=== PATIENT | male | born 1955 | race Caucasian/White ===

== ENCOUNTER 2024-08-21 12:46 | Observation (INO) ==
--- NOTE | 2024-08-21 12:52 | EKG ---
Test Reason : syncopy Blood Pressure : */* mmHG Vent. Rate : 66 BPM Atrial Rate : 66 BPM P-R Int : 154 ms QRS Dur : 74 ms QT Int : 394 ms P-R-T Axes : 56 45 48 degrees QTc Int : 413 ms Normal sinus rhythm Possible Anterior infarct , age undetermined Abnormal ECG No previous ECGs available Confirmed by Justin Brush MD ([id number]) on 08/22/2024 7:21:39 AM Referred By: Confirmed By: Justin Brush MD
--- NOTE | 2024-08-21 13:09 | DR.GENAD ---
HPI Time Seen Time Seen by Provider: 08/21/24 13:08 HPI Comment HPI Comment: 68-year-old male with history of diabetes, hypertension and stents was brought in by EMS after he almost passed out and vomited twice, bloodstained vomitus. He denied any chest or abdominal pain. Patient has a pacemaker de fibrillator due to syncopal episode more than 5 years ago, saw student worker and they implanted him with this device. This has not fired since then. He is scheduled to see his student worker next month and for the meantime and be advised to increase his aspirin to twice a day. He has recurrent episodes of almost passing out whenever he stands up and thinks his blood pressure bottoms down. Complaint/Symptoms Chief Complaint Doctors Comments: Almost passed out, vomited bloody vomit COVID-19 Coronavirus risk:travel/contact w/high risk person: No Has patient experienced Coronavirus symptoms: No PMH PMH Past Medical History: Diabetes and Hypertension Past Surgical History: Yes Surgical History: Angioplasty/Stents and Ortho Surgery Family History Family Medical History: Diabetes Mellitus Social History Do you use any recreational Drugs:: No ROS Review of Systems Constitutional: Diaphoresis and Weakness Eyes: Blurred Vision ENTM: No Symptoms Reported Respiratoy: No Symptoms Reported; negative Short of Breath or Wheezing Cardiovascular: negative Chest Pain, Edema, Palpitations, Syncope or Cyanosis Gastrointestinal/Abdominal: No Symptoms Reported Genitourinary: No Symptoms Reported Neurological: No Symptoms Reported Musculoskeletal: No Symptoms Reported Integumentary: No Symptoms Reported; negative Rash Hematologic/Lymphatic: No Symptoms Reported; negative Easy Bleeding Endocrine: No Symptoms Reported Psychiatric: No Symptoms Reported; negative Anxiety or Depression All Other Systems: Reviewed and Negative PE Vital Signs Vitals: Vital Signs Temperature 98.0 F Pulse Rate 68 Pulse Rate 68 Pulse Rate 68 Pulse Rate 71 Pulse Rate 73 Pulse Rate 64 Pulse Rate 63 Pulse Rate 65 Pulse Rate 66 Pulse Rate 63 Pulse Rate 64 Pulse Rate 64 Pulse Rate 69 Pulse Rate 68 Pulse Rate 74 Pulse Rate 69 Pulse Rate 66 Pulse Rate 64 Pulse Rate 65 Pulse Rate 66 Pulse Rate 62 Pulse Rate 63 Pulse Rate 66 Pulse Rate 64 Respiratory Rate 19 Respiratory Rate 13 Respiratory Rate 17 Respiratory Rate 22 Respiratory Rate 23 Respiratory Rate 15 Respiratory Rate 21 Respiratory Rate 16 Respiratory Rate 13 Respiratory Rate 23 Respiratory Rate 21 Respiratory Rate 18 Respiratory Rate 15 Respiratory Rate 16 Respiratory Rate 22 Respiratory Rate 12 Respiratory Rate 17 Respiratory Rate 17 Respiratory Rate 11 Respiratory Rate 15 Respiratory Rate 15 Respiratory Rate 18 Blood Pressure 108/55 Blood Pressure 108/58 Blood Pressure 106/57 Blood Pressure 106/57 Blood Pressure 101/55 Blood Pressure 106/52 Blood Pressure 93/54 Blood Pressure 105/55 Blood Pressure 111/48 Blood Pressure 104/55 Blood Pressure 108/57 Blood Pressure 84/51 Blood Pressure 99/51 Blood Pressure 99/52 O2 Sat by Pulse Oximetry 97 O2 Sat by Pulse Oximetry 98 O2 Sat by Pulse Oximetry 98 O2 Sat by Pulse Oximetry 97 O2 Sat by Pulse Oximetry 97 O2 Sat by Pulse Oximetry 98 O2 Sat by Pulse Oximetry 98 O2 Sat by Pulse Oximetry 98 O2 Sat by Pulse Oximetry 98 O2 Sat by Pulse Oximetry 99 O2 Sat by Pulse Oximetry 98 O2 Sat by Pulse Oximetry 99 O2 Sat by Pulse Oximetry 98 O2 Sat by Pulse Oximetry 99 O2 Sat by Pulse Oximetry 99 O2 Sat by Pulse Oximetry 98 O2 Sat by Pulse Oximetry 99 O2 Sat by Pulse Oximetry 97 O2 Sat by Pulse Oximetry 98 O2 Sat by Pulse Oximetry 96 O2 Sat by Pulse Oximetry 97 O2 Sat by Pulse Oximetry 98 O2 Sat by Pulse Oximetry 98 O2 Sat by Pulse Oximetry 98 General Limitations: No Limitations General Appearance: Alert, In No Apparent Distress and Anxious Head Head Exam: Normal Inspection, Atraumatic and Normocephalic Eyes Eye exam: Normal Appearance and PERRL; negative Scleral Icterus ENT ENT Exam: Normal Exam, Normal Oropharynx and Mucous Membranes Moist External Ear Exam: Normal External Inspection; negative Auricular Hematoma Neck Neck Exam: Normal Inspection, Full ROM and Trachea Midline Chest Chest Inspection: Normal Inspection and Symmetric Chest Wall Rise; negative Tenderness Respiratory Respiratory Exam: Normal Lung Sounds Bilat; negative Accessory Muscle Use Cardiovascular Cardiovascular Exam: Regular Rate and Normal Rhythm Abdominal Exam Abdominal Exam: Normal Inspection and Normal Bowel Sounds Extremities Extremities Exam: Normal Inspection, Full ROM and Normal Capillary Refill; negative Tenderness Back Back Exam: Normal Inspection and Full ROM Neurologic Neurological Exam: Alert, Oriented X3, CN II-XII Intact and Reflexes Normal; negative Motor Sensory Deficit Psychiatric Psychiatric Exam: Normal Affect and Normal Mood Skin Skin Exam: Warm, Dry and Normal Color MDM Additional Information Additional Information Obtained From: Old Records and Family Differential Diagnosis Differential Diagnosis: Sepsis, arrhythmia, ACS, GI bleed COURSE Treatment Treatment: Patient is given IV fluids for his initial hypotension, improved to 108/68. Lactic acid is negative. EKG showed normal sinus rhythm, with no acute ischemic changes, has a pacemaker defibrillator. Cardiac enzymes are negative chest x-ray was unremarkable. CT scan of the abdomen pelvis did not show any acute worrisome finding. Stools were heme positive. Reevaluation 1st: Improved Consultation Called: 17:27 Consultation Comments: Hospitalist have been notified [facility] Labs Reviewed Laboratory Results Reviewed?: Yes 08/21/24 13:06 08/21/24 13:06 Laboratory: WBC 7.6 X10^3/uL (3.6-10.0) 08/21/24 13:06 RBC 4.24 X10^6/uL (4.7-6.0) L 08/21/24 13:06 Hgb 12.1 g/dL (13.5-18.0) L 08/21/24 13:06 Hct 36.3 % (42.0-54.0) L 08/21/24 13:06 MCV 85.7 fL (80.0-100.0) 08/21/24 13:06 MCH 28.5 pg (27.0-34.0) 08/21/24 13:06 MCHC 33.3 g/dL (33.0-35.0) 08/21/24 13:06 RDW 13.9 % (11.6-16.5) 08/21/24 13:06 Plt Count 267 X10^3/uL (150.0-450.0) 08/21/24 13:06 MPV 8.1 fL (7.4-11.0) 08/21/24 13:06 Neut % (Auto) 67.2 % (42.0-75.0) 08/21/24 13:06 Lymph % (Auto) 23.4 % (21.0-51.0) 08/21/24 13:06 [place] % (Auto) 7.1 % (0.0-13.0) 08/21/24 13:06 Eos % (Auto) 1.4 % (0.9-2.9) 08/21/24 13:06 Baso % (Auto) 0.9 % (0.2-1.0) 08/21/24 13:06 Neut # (Auto) 5.1 x10^3/uL (2.2-4.8) H 08/21/24 13:06 Lymph # (Auto) 1.8 X10^3/uL (1.3-2.9) 08/21/24 13:06 [place] # (Auto) 0.5 x10^3/uL (0.3-0.8) 08/21/24 13:06 Eos # (Auto) 0.1 x10^3/uL (0.0-0.2) 08/21/24 13:06 Baso # (Auto) 0.1 X10^3/uL (0.0-0.1) 08/21/24 13:06 Absolute Nucleated RBC 0.1 /100WBC 08/21/24 13:06 PT 14.8 SECONDS (11.8-14.3) 08/21/24 13:06 INR Target Range - 08/21/24 13:06 INR 1.19 (0.8-1.3) 08/21/24 13:06 APTT 29.8 SECONDS (22.9-36.5) 08/21/24 13:06 PTT Comment - 08/21/24 13:06 Sodium 140 mmol/L (136-145) 08/21/24 13:06 Corrected Sodium 143 mmol/L (136-145) 08/21/24 13:06 Potassium 5.3 mmol/L (3.5-5.1) H 08/21/24 13:06 Chloride 105 mmol/L (98-107) 08/21/24 13:06 Carbon Dioxide 29.3 mmol/L (21-32) 08/21/24 13:06 BUN 52 mg/dL (7-18) H 08/21/24 13:06 Creatinine 0.97 mg/dL (0.70-1.30) 08/21/24 13:06 Est GFR (MDRD) Af Amer > 60 (>60) 08/21/24 13:06 Est GFR (MDRD) Non-Af > 60 (>60) 08/21/24 13:06 Glucose 224 mg/dL (65-99) H 08/21/24 13:06 Lactic Acid 1.1 mmol/L (0.4-2.0) 08/21/24 15:25 Calcium 8.5 mg/dL (8.5-10.1) 08/21/24 13:06 Corrected Calcium 9.3 mg/dL (8.5-10.1) 08/21/24 13:06 Total Bilirubin 0.50 mg/dL (0.2-1.0) 08/21/24 13:06 AST 14 Units/L (15-37) L 08/21/24 13:06 ALT 20 Units/L (12-78) 08/21/24 13:06 Alkaline Phosphatase 63 Units/L (46-116) 08/21/24 13:06 Creatine Kinase 69 Units/L (39-308) 08/21/24 13:06 Troponin I High Sens 6.5 ng/L (4.0-60.0) 08/21/24 13:06 Total Protein 5.8 g/dL (6.4-8.2) L 08/21/24 13:06 Albumin 3.0 g/dL (3.4-5.0) L 08/21/24 13:06 Globulin 2.8 g/dL (2.5-4.5) 08/21/24 13:06 Albumin/Globulin Ratio 1.1 Ratio (1.1-2.1) 08/21/24 13:06 Lipase 28 Units/L (16-77) 08/21/24 13:06 Specimen Type Clean catch urine 08/21/24 14:40 Urine Color Yellow (YELLOW) 08/21/24 14:40 Urine Appearance Clear (CLEAR) 08/21/24 14:40 Urine pH 6.0 (5.0 - 8.0) 08/21/24 14:40 Ur Specific [place] 1.020 (1.000-1.030) 08/21/24 14:40 Urine Protein 2+ (NEGATIVE) 08/21/24 14:40 Urine Glucose (UA) Negative (NEGATIVE) 08/21/24 14:40 Urine Ketones 1+ (NEGATIVE) 08/21/24 14:40 Urine Blood Negative (NEGATIVE) 08/21/24 14:40 Urine Nitrite Negative (NEGATIVE) 08/21/24 14:40 Urine Bilirubin Negative (NEGATIVE) 08/21/24 14:40 Urine Urobilinogen Normal (NORMAL) 08/21/24 14:40 Ur Leukocyte Esterase Negative (NEGATIVE) 08/21/24 14:40 Urine RBC 0-2 /HPF (0-3) 08/21/24 14:40 Urine WBC 0-2 /HPF (0-5) 08/21/24 14:40 Ur Squamous Epith Cells Rare /HPF (NEGATIVE) 08/21/24 14:40 Urine Bacteria Negative /HPF (NEGATIVE) 08/21/24 14:40 Hyaline Casts Few /LPF (NEGATIVE) 08/21/24 14:40 Ur Culture Indicated? No/not indicated 08/21/24 14:40 Stool Occult Blood Positive (NEGATIVE) A 08/21/24 14:40 Urine Opiates Screen Negative (NEG=<300) 08/21/24 14:40 Urine Methadone Screen Negative (NEG=<300) 08/21/24 14:40 Ur Barbiturates Screen Negative (NEG=<200) 08/21/24 14:40 Ur Phencyclidine Scrn Negative (NEG=<25) 08/21/24 14:40 Ur Amphetamines Screen Negative (NEG=<1000) 08/21/24 14:40 U Benzodiazepines Scrn Negative (NEG=<200) 08/21/24 14:40 Urine Cocaine Screen Negative (NEG=<300) 08/21/24 14:40 U Marijuana (THC) Screen Negative (NEG=<50) 08/21/24 14:40 Ethyl Alcohol mg/dL < 3 mg/dL (0-19.9) 08/21/24 13:06 Opioid Opioid Risk Tool Age (Ron box if 16-45): No History of Preadolescent Sexual Abuse: No Total: 0 Total Score Risk Category: Low Risk Copyright: Gerard ALLEN predicting aberrant behaviors Discharge Plan Diagnosis Discharge Problem: Postural dizziness with near syncope, Heme positive stool, Acute hypotension Hospital Course Hospital Course: Patient is given IV fluids for his hypotension. No further recurrence of hematemesis was noted. Stools are heme positive. Flat test results are all within normal limits. EKG was also unremarkable, cardiac enzymes and troponin negative. Due to hypotension and probable GI bleed, patient will be admitted for the hospitalist, discussed with Dr. Huitron Discharge Plan Patient Disposition: ADMITTED INPATIENT Condition: Stable Prescriptions: No Action zinc 15 mg Tablet 30 mg PO DAILY atorvastatin 40 mg tablet 40 mg PO QDAY metformin 500 mg tablet 500 mg PO BID ascorbic acid (vitamin C) [Vitamin C] 1,000 mg Tablet 1,000 mg PO DAILY cetirizine 10 mg Tablet 10 mg PO DAILY nifedipine 90 mg tablet extended release 90 mg PO QDAY metoprolol succinate 200 mg tablet extended release 24 hr 200 mg PO QDAY isosorbide mononitrate 30 mg tablet extended release 24 hr 120 mg PO QDAY clopidogrel 75 mg tablet 75 mg PO QDAY meloxicam 7.5 mg tablet 7.5 mg PO BID tamsulosin 0.4 mg capsule 0.4 mg PO QDAY gemfibrozil 600 mg tablet 600 mg PO BID hydroxyzine HCl 25 mg tablet 25 mg PO QDAY lisinopril 40 mg tablet 40 mg PO QDAY finasteride 5 mg tablet 5 mg PO QDAY Centrum Silver Tablet 1 tab PO DAILY cholecalciferol (vitamin D3) [Vitamin D3] 125 mcg (5,000 unit) Tablet 125 mcg PO DAILY aspirin [Aspir-81] 81 mg Tablet,Delayed Release (Dr/Ec) 81 mg PO QDAY dapagliflozin propanediol [Farxiga] 10 mg Tablet 10 mg PO QDAY hydralazine 25 mg Tablet 25 mg PO BID Health Concerns: Post Hospitalization: new medications and changes needed to prevent readmission or further decline. Pt educated and given instructions on all concerns. Plan of Treatment: Continue with present treatment and follow up plan. Pt is to keep follow up appointment as instructed and take medications as ordered. Follow ups/Referrals Follow ups/Referrals: JAELYN SAHU [Primary Care Provider] - 3 days Instructions Stand Alone Forms: Find Help Web Site, Post Hospital Follow Up Care
[2024-08-21] MEDS: NS 1,000 ML IV 1,000 ML IV ONE ×2 (13:21→15:55)
[2024-08-21 13:24] LABS: BASOPHILS # (AUTO) 0.1 X10^3/uL (0.0-0.1); BASOPHILS % (AUTO) 0.9 % (0.2-1.0); EOSINOPHILS # (AUTO) 0.1 x10^3/uL (0.0-0.2); EOSINOPHILS % (AUTO) 1.4 % (0.9-2.9); HEMATOCRIT 36.3 % (42.0-54.0); HEMOGLOBIN 12.1 g/dL (13.5-18.0); LYMPHOCYTES # (AUTO) 1.8 X10^3/uL (1.3-2.9); LYMPHOCYTES % (AUTO) 23.4 % (21.0-51.0); MEAN CORPUSCULAR HEMOGLOBIN 28.5 pg (27.0-34.0); MEAN CORPUSCULAR HGB CONC 33.3 g/dL (33.0-35.0); MEAN CORPUSCULAR VOLUME 85.7 fL (80.0-100.0); MEAN PLATELET VOLUME 8.1 fL (7.4-11.0); MONOCYTES # (AUTO) 0.5 x10^3/uL (0.3-0.8); MONOCYTES % (AUTO) 7.1 % (0.0-13.0); NEUTROPHILS # (AUTO) 5.1 x10^3/uL (2.2-4.8); NEUTROPHILS % (AUTO) 67.2 % (42.0-75.0); PLATELET COUNT 267 X10^3/uL (150.0-450.0); RED BLOOD COUNT 4.24 X10^6/uL (4.7-6.0); RED CELL DISTRIBUTION WIDTH 13.9 % (11.6-16.5); WHITE BLOOD COUNT 7.6 X10^3/uL (3.6-10.0)
[2024-08-21 13:29] LABS: INR 1.19 (0.8-1.3)
[2024-08-21 13:39] LABS: ALANINE AMINOTRANSFERASE 20 Units/L (12-78); ALKALINE PHOSPHATASE 63 Units/L (46-116); ASPARTATE AMINO TRANSFERASE 14 Units/L (15-37); BLOOD ALCOHOL < 3 mg/dL (0-19.9); BLOOD UREA NITROGEN 52 mg/dL (7-18); CALCIUM 8.5 mg/dL (8.5-10.1); CARBON DIOXIDE 29.3 mmol/L (21-32); CHLORIDE 105 mmol/L (98-107); COR CA(FOR HYPOALB) 9.3 mg/dL (8.5-10.1); COR NA(FOR HYPERGLY) 143 mmol/L (136-145); CREATINE KINASE 69 Units/L (39-308); CREATININE 0.97 mg/dL (0.70-1.30); GLUCOSE 224 mg/dL (65-99); LIPASE 28 Units/L (16-77); POTASSIUM 5.3 mmol/L (3.5-5.1); SODIUM 140 mmol/L (136-145); TOTAL PROTEIN 5.8 g/dL (6.4-8.2); eGFR NON BLACK RACES > 60 (>60)
--- NOTE | 2024-08-21 13:59 | CT ---
EXAM:ABDOMEN/PELVIS W/O CONHISTORY:dysuria, recurrent uti ;COMPARISON:Abdominopelvic CT examination dated February 20, 2019TECHNIQUE:Multiple axial images of the abdomen and pelvis were obtained from the lung bases to the pubic symphysis without the administration of IV contrast. Dose reduction techniques including Automated Exposure Control (AEC) and adjustment of mA and kV were utilized. Of note, this noncontrast CT examination of the abdomen and pelvis was optimized for renal stone disease and, thus, many abdominopelvic/intraperitoneal organ abnormalities and especially vascular abnormalities and pathologies can not be completely excluded on the basis of this noncontrast CT examination. If there remains strong clinical concern for solid organ parenchymal abnormality/injuries or vascular abnormalities especially injuries, then repeat imaging with postcontrast abdominopelvic CT will be required.FINDINGS:The lung bases are clear. The heart is normal in size without a pericardial effusion. Scattered coronary atherosclerosis is seen with a cardiac pacing device in the right ventricle. Noncontrast CT images of the liver, pancreas, spleen, and adrenal glands are unremarkable in appearance. The stomach is filled with food stuff.No obstructing renal stones, hydronephrosis, or hydroureter is seen.The gallbladder demonstrates a small intraluminal gallbladder stone with probable gallbladder sludge. This can be followed up with gallbladder sonography for assurance.There is no evidence for acute appendicitis, colitis, or diverticulitis. There is a small fat containing periumbilical hernia with postsurgical changes following a prior hernia repair.No bowel obstruction or bowel strangulation is seen.Degenerative changes are seen throughout the lower lumbar spine with bilateral pars defects at L3-4 which creates slight anterolisthesis of L3 on L4 with a broad-based posterior disc osteophyte complex at this level which combines with facet joint DJD to create [id number] central spinal canal and foraminal narrowing at this level. Broad-based posterior disc osteophyte complex is also seen at L5-S1 which creates moderate central spinal canal narrowing and [id number] bilateral foraminal narrowing at this level as well. Please correlate for low back pain and/or radiculopathy. Degenerative spondylosis and changes of DISH are also seen involving the thoracolumbar spinal junction.No other acute or significant abdominal process is identified, given the inherent physical limitations of this noncontrast CT study.The bones demonstrate no evidence for an acute fracture or destructive lytic bone lesion on this examination.IMPRESSION:As above.THIS IS AN ELECTRONICALLY VERIFIED FINAL REPORT08/21/2024 1:55 PM - Electronically signed by Eugenio Stewart MD
--- NOTE | 2024-08-21 14:42 | RAD ---
EXAM: CHEST, 1 VIEW HISTORY: vomited blood; COMPARISON: No relevant prior studies were available for comparison at the time of interpretation. TECHNIQUE: CHEST, 1 VIEW FINDINGS: Chest: Lines and tubes: Left-sided pacemaker generator with lead or leads in satisfactory position. Mediastinum: Cardiac and mediastinal shadow is within normal limits for size and contour. Pulmonary vessels: No pulmonary vascular congestion. Lung davalos: No suspicious airspace opacity. Pleura: No effusion. No pneumothorax. Bones and soft tissues: No acute osseous or soft tissue abnormality. IMPRESSION: 1. No acute cardiopulmonary abnormality THIS IS AN ELECTRONICALLY VERIFIED FINAL REPORT 08/21/2024 2:38 PM - Electronically signed by Cabrera Morfin MD
[2024-08-21 15:06] LABS: BILIRUBIN,URINE NEGATIVE (NEGATIVE); BLOOD/HEMOGLOBIN,URINE NEGATIVE (NEGATIVE); GLUCOSE, URINE NEGATIVE (NEGATIVE); KETONES,URINE 1+ (NEGATIVE); LEUKOCYTE ESTERASE ,URINE NEGATIVE (NEGATIVE); NITRITES,URINE NEGATIVE (NEGATIVE); PROTEIN,URINE 2+ (NEGATIVE); UROBILINOGEN,URINE NORMAL (NORMAL)
[2024-08-21 15:07] LABS: APPEARANCE,URINE CLEAR (CLEAR); COLOR,URINE YELLOW (YELLOW)
[2024-08-21 15:18] LABS: BACTERIA,URINE NEGATIVE /HPF (NEGATIVE); HYALINE CASTS, URINE FEW /LPF (NEGATIVE); RBC,URINE 0-2 /HPF (0-3); SQUAMOUS EPITHELIAL CELL,UR RARE /HPF (NEGATIVE)
[2024-08-21] MEDS ORDERED: NovoLIN R (or HumuLIN R) SUBCUT PRN (19:23)
[2024-08-21] MEDS: SNACK - Diabetic Appropriate PO SCH (21:33)
[2024-08-21] MEDS: PROTONIX INJ 40 MG VIAL IVP SCH (22:20)
[2024-08-21] MEDS: FLOMAX PO SCH (22:20)
[2024-08-21] MEDS: NS 1,000 ML IV 1,000 ML IV SCH (23:06)
[2024-08-22 01:15] VITALS: BMI 31.9
[2024-08-22 06:10] LABS: BASOPHILS % (AUTO) 0.3 % (0.2-1.0); EOSINOPHILS # (AUTO) 0.1 x10^3/uL (0.0-0.2); EOSINOPHILS % (AUTO) 0.8 % (0.9-2.9); HEMATOCRIT 29.5 % (42.0-54.0); HEMOGLOBIN 10.1 g/dL (13.5-18.0); LYMPHOCYTES # (AUTO) 1.9 X10^3/uL (1.3-2.9); LYMPHOCYTES % (AUTO) 24.2 % (21.0-51.0); MEAN CORPUSCULAR HEMOGLOBIN 28.7 pg (27.0-34.0); MEAN CORPUSCULAR HGB CONC 34.1 g/dL (33.0-35.0); MEAN CORPUSCULAR VOLUME 83.9 fL (80.0-100.0); MEAN PLATELET VOLUME 8.1 fL (7.4-11.0); MONOCYTES # (AUTO) 0.8 x10^3/uL (0.3-0.8); MONOCYTES % (AUTO) 9.7 % (0.0-13.0); NEUTROPHILS # (AUTO) 5.2 x10^3/uL (2.2-4.8); PLATELET COUNT 230 X10^3/uL (150.0-450.0); RED BLOOD COUNT 3.52 X10^6/uL (4.7-6.0); RED CELL DISTRIBUTION WIDTH 13.8 % (11.6-16.5)
[2024-08-22] MEDS: GLUCOPHAGE PO SCH (06:14)
[2024-08-22 06:27] LABS: ALANINE AMINOTRANSFERASE 17 Units/L (12-78); ALKALINE PHOSPHATASE 48 Units/L (46-116); ASPARTATE AMINO TRANSFERASE 10 Units/L (15-37); BLOOD UREA NITROGEN 51 mg/dL (7-18); CALCIUM 8.3 mg/dL (8.5-10.1); CARBON DIOXIDE 23.5 mmol/L (21-32); CHLORIDE 109 mmol/L (98-107); COR CA(FOR HYPOALB) 9.1 mg/dL (8.5-10.1); COR NA(FOR HYPERGLY) 144 mmol/L (136-145); CREATININE 0.89 mg/dL (0.70-1.30); GLUCOSE 136 mg/dL (65-99); POTASSIUM 3.7 mmol/L (3.5-5.1); SODIUM 143 mmol/L (136-145); TOTAL PROTEIN 5.5 g/dL (6.4-8.2); eGFR NON BLACK RACES > 60 (>60)
[2024-08-22] MEDS ORDERED: CONSULT PHARMACY - POTASSIUM & MAGNESIUM XX SCH (08:00)
[2024-08-22] MEDS ORDERED: TOPROL XL PO ONE (09:36)
[2024-08-22] MEDS: TAB-A-VITE PO SCH (09:46)
[2024-08-22] MEDS: TOPROL XL PO SCH (09:47)
[2024-08-22] MEDS: ZESTRIL TAB 40 MG PO SCH (09:47)
[2024-08-22] MEDS: FARXIGA PO SCH (09:47)
[2024-08-22] MEDS: LIPITOR TAB 40 MG PO SCH (09:47)
[2024-08-22] MEDS: K-DUR TAB 20 MEQ PO SCH (09:47)
[2024-08-22] MEDS: ATARAX TAB 25 MG PO SCH (09:47)
[2024-08-22] MEDS: DIPRIVAN VIAL 20 ML ONE (12:10)
[2024-08-22] MEDS: NS 1,000 ML IV 300 ML IV PRN (12:14)
[2024-08-22] MEDS: XYLOCAINE 2 % (PLAIN) INJ PRN (12:16)
[2024-08-22] MEDS: DIPRIVAN VIAL 150 ML IVP PRN (12:17)
--- NOTE | 2024-08-22 14:10 | RAD ---
EXAM:CHEST, 1 VIEWHISTORY:CHF, SOB, GI BLEED;COMPARISON:No relevant prior studies were available for comparison at the time of interpretation.TECHNIQUE:CHEST, 1 VIEWFINDINGS:Chest:Lines and tubes: Left-sided pacemaker generator with lead or leads in satisfactory position.Mediastinum: Cardiac and mediastinal shadow is within normal limits for size and contour.Pulmonary vessels: No pulmonary vascular congestion.Lung davalos: No suspicious airspace opacity.Pleura: No effusion. No pneumothorax.Bones and soft tissues: No acute osseous or soft tissue abnormality.IMPRESSION:1. No acute cardiopulmonary abnormalityTHIS IS AN ELECTRONICALLY VERIFIED FINAL REPORT08/22/2024 2:06 PM - Electronically signed by Cabrera Morfin MD
[2024-08-22] MEDS: CARAFATE PO SCH (15:32)
--- NOTE | 2024-08-22 16:20 | DR.H&P ---
H&P History & Physical for Day of: H&P Date: 08/21/24 Chief Complaint Chief Complaint: PASSED OUT, LOW BLOOD PRESSURE, VOMITING DARK BROWN History of Present Illness History of Present Illness: PT IS 68 WM, ER ADMISSION WITH CO UPPER ABDOMINAL PAIN WITH VOMITING COFFEE GROUND EMESIS. PT CO SPELL OF WEAKNESS AND DIZZINESS AND SYNCOPE. PT WAS BROUGHT TO ER FOR ASSESSMENT. PT WAS HYPOTENSIVE ON ARRIVAL. PT WAS GIVEN IVF BOLUS IN ER. PT HAS POSITIVE OCCULT STOOL. PT HAS PMH OF CAD WITH PACEMAKER/DEFIBRILLATOR, BPH, HTN, CAROTID ARTERY DISEASE, CHF, OA AND [place]. PT ADMITTED FOR TREATMENT AND EVALUATION OF ACUTE ILLNESS. Past Medical History Past Medical History: Arthritis, Diabetes, Dyslipidemia, GERD and Hypertension Past Surgical History Surgical History: Angioplasty/Stents Family History Family Medical History: Diabetes Mellitus, Cancer, [place], Coronary Artery Disease, Heart Failure, Sudden Cardiac and Hypertension Social History Does patient currently use any type of tobacco product: No Have you used tobacco products in the last 12 months: No Type of Tobacco Use: None Does any household member use tobacco: No Alcohol Use: None Drug Use: None Medications Home Medications: Home Medications Medication Instructions Recorded Confirmed Type ascorbic acid (vitamin C) 1,000 mg 1,000 mg PO DAILY 08/19/22 08/21/24 History tablet (Vitamin C) atorvastatin 40 mg tablet 40 mg PO QDAY 08/19/22 08/21/24 History cetirizine 10 mg tablet 10 mg PO DAILY 08/19/22 08/21/24 History cholecalciferol (vitamin D3) 125 125 mcg PO DAILY 08/19/22 08/21/24 History mcg (5,000 unit) tablet (Vitamin D3) clopidogrel 75 mg tablet 75 mg PO QDAY 08/19/22 08/21/24 History finasteride 5 mg tablet 5 mg PO QDAY 08/19/22 08/21/24 History gemfibrozil 600 mg tablet 600 mg PO BID 08/19/22 08/21/24 History hydroxyzine HCl 25 mg tablet 25 mg PO QDAY 08/19/22 08/21/24 History isosorbide mononitrate 30 mg 120 mg PO QDAY 08/19/22 08/21/24 History tablet,extended release 24 hr lisinopril 40 mg tablet 40 mg PO QDAY 08/19/22 08/21/24 History meloxicam 7.5 mg tablet 7.5 mg PO BID 08/19/22 08/21/24 History metformin 500 mg tablet 500 mg PO BID 08/19/22 08/21/24 History metoprolol succinate 200 mg 200 mg PO QDAY 08/19/22 08/21/24 History tablet,extended release 24 hr lporlpnemwxy-jghoflsg-rnuyot tablet 1 tab PO DAILY 08/19/22 08/21/24 History nifedipine 90 mg tablet,extended 90 mg PO QDAY 08/19/22 08/21/24 History release tamsulosin 0.4 mg capsule 0.4 mg PO QDAY 08/19/22 08/21/24 History zinc 15 mg tablet 30 mg PO DAILY 08/19/22 08/21/24 History aspirin 81 mg tablet,delayed 81 mg PO QDAY 08/21/24 08/21/24 History release dapagliflozin propanediol 10 mg 10 mg PO QDAY 08/21/24 08/21/24 History tablet (Farxiga) hydralazine 25 mg tablet 25 mg PO BID 08/21/24 08/21/24 History Allergies Allergies Allergy/AdvReac Type Severity Reaction Status Date / Time Sulfa (Sulfonamide Allergy Verified 02/20/19 18:24 Antibiotics) [SULFA] Labs 08/22/24 05:06 08/22/24 05:06 Labs: Laboratory WBC 8.0 X10^3/uL (3.6-10.0) 08/22/24 05:06 RBC 3.52 X10^6/uL (4.7-6.0) L 08/22/24 05:06 Hgb 10.1 g/dL (13.5-18.0) L D 08/22/24 05:06 Hct 29.5 % (42.0-54.0) L 08/22/24 05:06 MCV 83.9 fL (80.0-100.0) 08/22/24 05:06 MCH 28.7 pg (27.0-34.0) 08/22/24 05:06 MCHC 34.1 g/dL (33.0-35.0) 08/22/24 05:06 RDW 13.8 % (11.6-16.5) 08/22/24 05:06 Plt Count 230 X10^3/uL (150.0-450.0) 08/22/24 05:06 MPV 8.1 fL (7.4-11.0) 08/22/24 05:06 Neut % (Auto) 65.0 % (42.0-75.0) 08/22/24 05:06 Lymph % (Auto) 24.2 % (21.0-51.0) 08/22/24 05:06 [place] % (Auto) 9.7 % (0.0-13.0) 08/22/24 05:06 Eos % (Auto) 0.8 % (0.9-2.9) L 08/22/24 05:06 Baso % (Auto) 0.3 % (0.2-1.0) 08/22/24 05:06 Neut # (Auto) 5.2 x10^3/uL (2.2-4.8) H 08/22/24 05:06 Lymph # (Auto) 1.9 X10^3/uL (1.3-2.9) 08/22/24 05:06 Island # (Auto) 0.8 x10^3/uL (0.3-0.8) 08/22/24 05:06 Eos # (Auto) 0.1 x10^3/uL (0.0-0.2) 08/22/24 05:06 Baso # (Auto) 0.0 X10^3/uL (0.0-0.1) 08/22/24 05:06 Absolute Nucleated RBC 0.0 /100WBC 08/22/24 05:06 PT 14.8 SECONDS (11.8-14.3) 08/21/24 13:06 INR Target Range - 08/21/24 13:06 INR 1.19 (0.8-1.3) 08/21/24 13:06 APTT 29.8 SECONDS (22.9-36.5) 08/21/24 13:06 PTT Comment - 08/21/24 13:06 Sodium 143 mmol/L (136-145) 08/22/24 05:06 Corrected Sodium 144 mmol/L (136-145) 08/22/24 05:06 Potassium 3.7 mmol/L (3.5-5.1) 08/22/24 05:06 Chloride 109 mmol/L (98-107) H 08/22/24 05:06 Carbon Dioxide 23.5 mmol/L (21-32) 08/22/24 05:06 BUN 51 mg/dL (7-18) H 08/22/24 05:06 Creatinine 0.89 mg/dL (0.70-1.30) 08/22/24 05:06 Est GFR (MDRD) Af Amer > 60 (>60) 08/22/24 05:06 Est GFR (MDRD) Non-Af > 60 (>60) 08/22/24 05:06 Glucose 136 mg/dL (65-99) H 08/22/24 05:06 POC Glucose (mg/dL) 121 mg/dL (65-99) H 08/22/24 12:21 Lactic Acid 1.1 mmol/L (0.4-2.0) 08/21/24 15:25 Calcium 8.3 mg/dL (8.5-10.1) L 08/22/24 05:06 Corrected Calcium 9.1 mg/dL (8.5-10.1) 08/22/24 05:06 Magnesium 1.9 mg/dL (2.0-2.9) L 08/22/24 05:06 Total Bilirubin 0.30 mg/dL (0.2-1.0) 08/22/24 05:06 AST 10 Units/L (15-37) L 08/22/24 05:06 ALT 17 Units/L (12-78) 08/22/24 05:06 Alkaline Phosphatase 48 Units/L (46-116) 08/22/24 05:06 Creatine Kinase 69 Units/L (39-308) 08/21/24 13:06 Troponin I High Sens 6.5 ng/L (4.0-60.0) 08/21/24 13:06 Total Protein 5.5 g/dL (6.4-8.2) L 08/22/24 05:06 Albumin 3.0 g/dL (3.4-5.0) L 08/22/24 05:06 Globulin 2.5 g/dL (2.5-4.5) 08/22/24 05:06 Albumin/Globulin Ratio 1.2 Ratio (1.1-2.1) 08/22/24 05:06 Lipase 28 Units/L (16-77) 08/21/24 13:06 Specimen Type Clean catch urine 08/21/24 14:40 Urine Color Yellow (YELLOW) 08/21/24 14:40 Urine Appearance Clear (CLEAR) 08/21/24 14:40 Urine pH 6.0 (5.0 - 8.0) 08/21/24 14:40 Ur Specific [place] 1.020 (1.000-1.030) 08/21/24 14:40 Urine Protein 2+ (NEGATIVE) 08/21/24 14:40 Urine Glucose (UA) Negative (NEGATIVE) 08/21/24 14:40 Urine Ketones 1+ (NEGATIVE) 08/21/24 14:40 Urine Blood Negative (NEGATIVE) 08/21/24 14:40 Urine Nitrite Negative (NEGATIVE) 08/21/24 14:40 Urine Bilirubin Negative (NEGATIVE) 08/21/24 14:40 Urine Urobilinogen Normal (NORMAL) 08/21/24 14:40 Ur Leukocyte Esterase Negative (NEGATIVE) 08/21/24 14:40 Urine RBC 0-2 /HPF (0-3) 08/21/24 14:40 Urine WBC 0-2 /HPF (0-5) 08/21/24 14:40 Ur Squamous Epith Cells Rare /HPF (NEGATIVE) 08/21/24 14:40 Urine Bacteria Negative /HPF (NEGATIVE) 08/21/24 14:40 Hyaline Casts Few /LPF (NEGATIVE) 08/21/24 14:40 Ur Culture Indicated? No/not indicated 08/21/24 14:40 Stool Occult Blood Positive (NEGATIVE) A 08/21/24 14:40 Urine Opiates Screen Negative (NEG=<300) 08/21/24 14:40 Urine Methadone Screen Negative (NEG=<300) 08/21/24 14:40 Ur Barbiturates Screen Negative (NEG=<200) 08/21/24 14:40 Ur Phencyclidine Scrn Negative (NEG=<25) 08/21/24 14:40 Ur Amphetamines Screen Negative (NEG=<1000) 08/21/24 14:40 U Benzodiazepines Scrn Negative (NEG=<200) 08/21/24 14:40 Urine Cocaine Screen Negative (NEG=<300) 08/21/24 14:40 U Marijuana (THC) Screen Negative (NEG=<50) 08/21/24 14:40 Ethyl Alcohol mg/dL < 3 mg/dL (0-19.9) 08/21/24 13:06 Review of Systems Constitutional: Weakness Eyes: No Symptoms Reported ENT: No Symptoms Reported Respiratory: SOB with Excertion Cardiovascular: Light Headedness Gastrointestinal: Vomiting and Abdominal Pain Genitourinary: Frequency Musculoskeletal: Back Pain Skin: No Symptoms Reported Neurological: Weakness and Other (SYNCOPE) Physical Exam Vital Signs: Vital Signs Temperature 98.1 F Temperature 98.1 F Temperature 98.0 F Temperature 98.1 F Temperature 98.4 F Temperature 98.1 F Pulse Rate [Left Radial] 71 Pulse Rate [Left Radial] 70 Pulse Rate [Left Radial] 68 Pulse Rate [Left Radial] 70 Pulse Rate [Left Radial] 70 Pulse Rate [Left Radial] 69 Respiratory Rate 18 Respiratory Rate 18 Respiratory Rate 18 Respiratory Rate 18 Respiratory Rate 18 Respiratory Rate 18 Blood Pressure [Left Arm] 146/78 Blood Pressure [Left Arm] 142/69 Blood Pressure [Left Arm] 134/69 Blood Pressure [Left Arm] 129/68 Blood Pressure [Left Arm] 140/65 Blood Pressure [Left Arm] 155/75 O2 Sat by Pulse Oximetry 97 O2 Sat by Pulse Oximetry 97 O2 Sat by Pulse Oximetry 97 O2 Sat by Pulse Oximetry 97 O2 Sat by Pulse Oximetry 97 O2 Sat by Pulse Oximetry 99 Oriented: Normal Eyes: Normal Ear: Normal Nose: Normal Throat: Normal Respiratory: RLL Diminished and LLL Diminished Cardiovascular: Normal and Other (PACER/DEFIB) Auscultation: Bowel Sounds: Normal Palpation: Normal Tenderness: Normal Skin: Normal and Decreased Turgur Musculoskeletal: negative Pulse Deficit Psychiatric: Normal Mood Description: Calm Affect: Normal Speech Pattern: Clear and Appropriate Assessment/Plan (1) GI bleed: Status: Acute Plan: ADMIT, NPO GI CONSULT, IV PROTONIX TELEMETRY IV HYDRATION, BP CONTROL VERIFY HOME MEDICATIONS OCCULT STOOL ON ADMISSION I&OS (2) Acute hypotension: Status: Acute (3) Postural dizziness with near syncope: Status: Acute (4) Acute urinary retention: Status: Acute (5) HTN (hypertension): Qualifiers: Hypertension type: essential hypertension Qualified Code(s): I10 - Essential (primary) hypertension Status: Acute (6) CAD (coronary artery disease): Status: Acute (7) Diabetes: Status: Acute
[2024-08-22 16:39] LABS: BASOPHILS % (AUTO) 0.5 % (0.2-1.0); EOSINOPHILS # (AUTO) 0.1 x10^3/uL (0.0-0.2); EOSINOPHILS % (AUTO) 1.8 % (0.9-2.9); HEMATOCRIT 30.3 % (42.0-54.0); HEMOGLOBIN 10.3 g/dL (13.5-18.0); LYMPHOCYTES # (AUTO) 2.1 X10^3/uL (1.3-2.9); LYMPHOCYTES % (AUTO) 31.4 % (21.0-51.0); MEAN CORPUSCULAR HEMOGLOBIN 28.7 pg (27.0-34.0); MEAN CORPUSCULAR VOLUME 84.5 fL (80.0-100.0); MEAN PLATELET VOLUME 8.1 fL (7.4-11.0); MONOCYTES # (AUTO) 0.6 x10^3/uL (0.3-0.8); MONOCYTES % (AUTO) 9.6 % (0.0-13.0); NEUTROPHILS # (AUTO) 3.8 x10^3/uL (2.2-4.8); NEUTROPHILS % (AUTO) 56.7 % (42.0-75.0); PLATELET COUNT 227 X10^3/uL (150.0-450.0); RED BLOOD COUNT 3.58 X10^6/uL (4.7-6.0); RED CELL DISTRIBUTION WIDTH 14.1 % (11.6-16.5); WHITE BLOOD COUNT 6.7 X10^3/uL (3.6-10.0)
[2024-08-22] MEDS: PROTONIX INJ 40 MG VIAL IVP SCH (21:11)
[2024-08-23 05:54] LABS: BASOPHILS # (AUTO) 0.1 X10^3/uL (0.0-0.1); BASOPHILS % (AUTO) 0.9 % (0.2-1.0); EOSINOPHILS # (AUTO) 0.2 x10^3/uL (0.0-0.2); EOSINOPHILS % (AUTO) 3.7 % (0.9-2.9); HEMATOCRIT 29.4 % (42.0-54.0); HEMOGLOBIN 9.9 g/dL (13.5-18.0); LYMPHOCYTES % (AUTO) 32.9 % (21.0-51.0); MEAN CORPUSCULAR HEMOGLOBIN 28.7 pg (27.0-34.0); MEAN CORPUSCULAR HGB CONC 33.8 g/dL (33.0-35.0); MEAN PLATELET VOLUME 7.8 fL (7.4-11.0); MONOCYTES # (AUTO) 0.6 x10^3/uL (0.3-0.8); MONOCYTES % (AUTO) 9.1 % (0.0-13.0); NEUTROPHILS # (AUTO) 3.2 x10^3/uL (2.2-4.8); NEUTROPHILS % (AUTO) 53.4 % (42.0-75.0); PLATELET COUNT 217 X10^3/uL (150.0-450.0); RED BLOOD COUNT 3.46 X10^6/uL (4.7-6.0); RED CELL DISTRIBUTION WIDTH 13.8 % (11.6-16.5); WHITE BLOOD COUNT 6.1 X10^3/uL (3.6-10.0)
[2024-08-23 06:26] LABS: ALANINE AMINOTRANSFERASE 27 Units/L (12-78); ALBUMIN 3.2 g/dL (3.4-5.0); ALKALINE PHOSPHATASE 48 Units/L (46-116); ASPARTATE AMINO TRANSFERASE 24 Units/L (15-37); BLOOD UREA NITROGEN 25 mg/dL (7-18); CALCIUM 8.5 mg/dL (8.5-10.1); CARBON DIOXIDE 27.8 mmol/L (21-32); CHLORIDE 109 mmol/L (98-107); COR CA(FOR HYPOALB) 9.1 mg/dL (8.5-10.1); COR NA(FOR HYPERGLY) 144 mmol/L (136-145); CREATININE 1.03 mg/dL (0.70-1.30); GLUCOSE 117 mg/dL (65-99); POTASSIUM 3.6 mmol/L (3.5-5.1); SODIUM 144 mmol/L (136-145); TOTAL PROTEIN 5.7 g/dL (6.4-8.2); eGFR NON BLACK RACES > 60 (>60)
[2024-08-23] MEDS: CONSULT PHARMACY - POTASSIUM & MAGNESIUM XX SCH (06:57)
[2024-08-23] MEDS ORDERED: TOPROL XL PO ONE (07:39)
[2024-08-23] MEDS: K-DUR TAB 20 MEQ PO SCH (08:02)
[2024-08-23 08:08] VITALS: BP 141/73; PULSE 69; RESP 18; TEMP 97.4; O2SAT 97
[2024-08-23] MEDS: GLUCOPHAGE ONE (08:46)
== END 2024-08-23 11:29 | disposition home or self-care (01) ==
LOC: MED/SURG 12:46 → ER 12:46 → MED/SURG 18:33
PROVIDERS: ADMIT Internal Medicine; ATTEND Internal Medicine
DX: R94.31 Abnormal electrocardiogram [ECG] [EKG]; Z95.0 Presence of cardiac pacemaker; K92.0 Hematemesis; M19.90 Unspecified osteoarthritis, unspecified site; R53.1 Weakness; K92.2 Gastrointestinal hemorrhage, unspecified; K21.9 Gastro-esophageal reflux disease without esophagitis; G47.39 Other sleep apnea; E11.65 Type 2 diabetes mellitus with hyperglycemia; N40.0 Benign prostatic hyperplasia without lower urinary tract symptoms; R26.89 Other abnormalities of gait and mobility; I95.89 Other hypotension; Z79.01 Long term (current) use of anticoagulants; R42 Dizziness and giddiness; I25.10 Atherosclerotic heart disease of native coronary artery without angina pectoris; E78.5 Hyperlipidemia, unspecified; I10 Essential (primary) hypertension; R55 Syncope and collapse; R06.02 Shortness of breath; E83.42 Hypomagnesemia